=== PATIENT | female | born 1945 | race Caucasian/White ===

== ENCOUNTER 2023-06-09 15:06 | Outpatient (RCR) | payer MEDICARE, OTHER, SELFPAY ==
--- NOTE | 2023-06-09 15:59 | PTOPEVAL1 ---
Assessment and note entered by Arian Noriega Evaluation Information Assessment Status Evaluation Diagnosis acute CVA Onset 06/02/23 Subjective Information Pt. reports that on 06/02/23 she began to notice weakness of the left leg and she began to slur her speech. She went to her doctor and she was immediately sent to the ER. She underwent CT scan , which she states revealed a small stroke. She reports that she has had a previous stroke affecting the left side. She reports that since her stroke she has noticed mild weakness in the right leg. She states that she notices some hesitation in her speech. She reports that her balance has been off and has been using a cane since 06/02/23. She reports that she was not using an AD prior to the 06/02/23 incident. She is continuing to drive. She reports that she has no recent falls, but just feels like she is unsteady. Her goal remains to improve her balance. Reported Pain Level Pain Score 0: Self Report Assessment PT Clinical Summary Pt. is a 78 year old female who enters the clinic developed weakness following CVA. She presents with l.e. weakness, impaired balance and impaired gait on this date. Continued skilled PT is indicated in order to improve these areas to improve pt. safety and efficiency with IADL performance. Plan of Care Interventions Electrical Stimulation,Gait Training,Hot Pack/Cold Pack,Manual Therapy,Neuro Re-education, Therapeutic Activities,Therapeutic Exercise PT Services Indicated Yes Treatment Frequency and 3x/week x 12 visits Duration These treatments will address the objective and functional deficits as defined above. The patient will be advanced safely and appropriately in order for the patient to progress towards his/her prior level of function. Additional exercises will be introduced and as well as a comprehensive home exercise program upon discharge, if needed, ?to ensure carryover of functional gains achieved in the clinic. This treatment plan has been reviewed and agreement upon by the patient.
--- NOTE | 2023-06-09 16:00 | OPREHPOC ---
Outpatient Therapy Plan of Care This is a Multidisciplinary Plan of Care that may contain components documented by all disciplines (PT, OT, and ST.) PT Problem 1 PT Problem #1 Knowledge Deficit PT Goal 1 Goal Independent with HEP addressing l.e. strength. Target Visit 2 PT Problem 2 PT Problem #2 Impaired Gait PT Goal 1 Goal Demosntrate step through pattern with the right l. e. during ambulation without verbal cuing. Target Visit 12 PT Problem 3 PT Problem #3 Impaired Balance PT Goal 1 Goal Improve tinetti score to 19 or greater indicating imrpoved safety with standing activities. Target Visit 12 PT Problem 4 PT Problem #4 Impaired Strength PT Goal 1 Goal Increase gross l.e. strength to 4+/5 or greater to improve stability with standing activities.
--- NOTE | 2023-07-01 14:39 | OPREHPOC ---
Outpatient Therapy Plan of Care This is a Multidisciplinary Plan of Care that may contain components documented by all disciplines (PT, OT, and ST.) PT Problem 1 PT Problem #1 Knowledge Deficit PT Goal 1 Goal Independent with HEP addressing l.e. strength. Target Visit 2 Progress Met PT Problem 2 PT Problem #2 Impaired Gait PT Goal 1 Goal Demosntrate step through pattern with the right l. e. during ambulation without verbal cuing. Target Visit 12 Comment progressing PT Problem 3 PT Problem #3 Impaired Balance PT Goal 1 Goal Improve tinetti score to 19 or greater indicating imrpoved safety with standing activities. Target Visit 12 Progress Met PT Problem 4 PT Problem #4 Impaired Strength PT Goal 1 Goal Increase gross l.e. strength to 4+/5 or greater to improve stability with standing activities. Comment progressing
--- NOTE | 2023-07-01 14:39 | PTOPPROGNS ---
Assessment and note entered by Hannah Villeda DPT Evaluation Information Assessment Status Progress Diagnosis acute CVA Onset 06/02/23 Subjective Information Patient reports that since start of PT she feels like her R leg has gotten stronger and R knee pain as decreased. She denies falls since start of PT. She reports she is only using the cane when she goes out in the community. She continues to report decreased balance Assessment PT Clinical Summary Patient has been seen for 10 visits of skilled PT. Patient has met goals for HEP and Tinetti at this time but continues to lack LE strength and has impaired gait increasing her risk for falls at home and in the community. Patient would benefit from remaining 2 visits to address remaining impairments and return to PLOF. Plan of Care Interventions Electrical Stimulation,Gait Training,Hot Pack/Cold Pack,Manual Therapy,Neuro Re-education, Therapeutic Activities,Therapeutic Exercise PT Services Indicated Yes Treatment Frequency and for remaining 2 visits Duration These treatments will address the objective and functional deficits as defined above. The patient will be advanced safely and appropriately in order for the patient to progress towards his/her prior level of function. Additional exercises will be introduced and as well as a comprehensive home exercise program upon discharge, if needed, ?to ensure carryover of functional gains achieved in the clinic. This treatment plan has been reviewed and agreement upon by the patient.
--- NOTE | 2023-07-04 14:46 | OPREHPOC ---
Outpatient Therapy Plan of Care This is a Multidisciplinary Plan of Care that may contain components documented by all disciplines (PT, OT, and ST.) PT Problem 1 PT Problem #1 Knowledge Deficit PT Goal 1 Goal Independent with HEP addressing l.e. strength. Target Visit 2 Progress Met PT Problem 2 PT Problem #2 Impaired Gait PT Goal 1 Goal Demosntrate step through pattern with the right l. e. during ambulation without verbal cuing. Target Visit 16 Comment progressing PT Problem 3 PT Problem #3 Impaired Balance PT Goal 1 Goal Improve tinetti score to 24 or greater indicating imrpoved safety with standing activities. Target Visit 16 Progress Met Comment upgraded PT Problem 4 PT Problem #4 Impaired Strength PT Goal 1 Goal Increase gross l.e. strength to 4+/5 or greater to improve stability with standing activities. Target Visit 16 Comment progressing
--- NOTE | 2023-07-04 14:46 | PTOPREEVAL ---
Assessment and note entered by Hannah Villeda DPT Evaluation Information Assessment Status Re-evaluation Diagnosis acute CVA Onset 06/02/23 Subjective Information Patient reports that since start of PT she feels like her R leg has gotten stronger and R knee pain as decreased. She denies falls since start of PT. She reports she is only using the cane when she goes out in the community. She continues to report decreased balance Reported Pain Level Pain Score 0: Self Report Assessment PT Clinical Summary Patient has been seen for 12 visits of skilled PT. Patient demonstrates improved Tinetti and STS time decreasing her fall risk. Patient was able to complete 6 min walk test this date. She continues to report difficulty with balance but reports she has improved ability to walk prolonged distances with increased strength. She would benefit from continued skilled PT to address remaining impairments and return to PLOF. Plan of Care Interventions Electrical Stimulation,Gait Training,Hot Pack/Cold Pack,Manual Therapy,Neuro Re-education, Therapeutic Activities,Therapeutic Exercise PT Services Indicated Yes Treatment Frequency and continue 2x weekly for 4 visits Duration These treatments will address the objective and functional deficits as defined above. The patient will be advanced safely and appropriately in order for the patient to progress towards his/her prior level of function. Additional exercises will be introduced and as well as a comprehensive home exercise program upon discharge, if needed, ?to ensure carryover of functional gains achieved in the clinic. This treatment plan has been reviewed and agreement upon by the patient.
--- NOTE | 2023-07-17 16:33 | OPREHPOC ---
Outpatient Therapy Plan of Care This is a Multidisciplinary Plan of Care that may contain components documented by all disciplines (PT, OT, and ST.) PT Problem 1 PT Problem #1 Knowledge Deficit PT Goal 1 Goal Independent with HEP addressing l.e. strength. Target Visit 2 Progress Met PT Problem 2 PT Problem #2 Impaired Gait PT Goal 1 Goal Demosntrate step through pattern with the right l. e. during ambulation without verbal cuing. Target Visit 16 Progress Met Comment progressing PT Problem 3 PT Problem #3 Impaired Balance PT Goal 1 Goal Improve tinetti score to 24 or greater indicating imrpoved safety with standing activities. Target Visit 16 Progress Not Met Comment upgraded PT Problem 4 PT Problem #4 Impaired Strength PT Goal 1 Goal Increase gross l.e. strength to 4+/5 or greater to improve stability with standing activities. Target Visit 16 Progress Met Comment progressing
--- NOTE | 2023-07-17 16:34 | PTOPDC ---
Assessment and note entered by Hannah Villeda DPT Evaluation Information Assessment Status Re-evaluation Diagnosis acute CVA Onset 06/02/23 Subjective Information Patient continues to reports that her R leg has improved strength.She reports she is not using the cane inside the house and has not had any falls. She reports she is doing her HEP at home. Reported Pain Level Pain Score 0: Self Report Assessment PT Clinical Summary Patient attended 16 visits of skilled PT with great progress towards goals. Patient demosntrates improved strength, ROM and gait mechanics and partially met goals. She has not had any falls since start of POC. She reports independence with HEP and is appropriate for DC at this time. Plan of Care PT Services Indicated No
== END 2023-07-17 18:35 | disposition home or self-care (01) ==
LOC: CHSPT 15:06
PROVIDERS: Visit Provider Nurse Practitioner
DX: R26.9 Unspecified abnormalities of gait and mobility (principal); I63.9 Cerebral infarction, unspecified; E11.65 Type 2 diabetes mellitus with hyperglycemia
CPT/HCPCS: 97110; 97112; 97150; 97161; 97530